=== PATIENT | male | born 1960 | race Two or more races ===

== ENCOUNTER 2022-04-19 06:09 | Inpatient (IN) | payer OTHER ==
[2022-04-19] VITALS (13 sets, daily range): BP systolic 91–158; BP diastolic 55–92
[~2022-04-19] VITALS: Ht 190.5 cm; Wt 107.0 kg
[~2022-04-19 06:09] MED LIST: ACET-1079 PO; GABA300C10 PO; NEBI5TAB2 PO; RIVA10TA PO
[2022-04-19] MEDS ORDERED: ceFAZolin 1GM/50ML 100 ML IV ONE (06:28)
[2022-04-19] MEDS ORDERED: PREGABALIN CAPSULE 75 MG CAP PO ONE (06:30)
[2022-04-19] MEDS ORDERED: ACETAMINOPHEN IV 1000 MG/100ML (10MG/ML) IV ONE (06:30)
[2022-04-19] MEDS ORDERED: PREGABALIN CAPSULE 75 MG CAP ONE (06:51)
[2022-04-19] MEDS ORDERED: CELECOXIB 100 MG CAP ONE (06:51)
[2022-04-19] MEDS ORDERED: ACETAMINOPHEN IV 100 ML IV ONE (06:52)
[2022-04-19] MEDS ORDERED: TRANEXAMIC ACID 20 ML ONE (07:02)
[2022-04-19] MEDS ORDERED: BUPIVACAINE W/ EPINEPH 0.25% INJ 50ML MDV ONE (07:03)
[2022-04-19] MEDS ORDERED: TETRACAINE 1% INJ 2 ML VIAL IJ ONE (07:03)
[2022-04-19] MEDS ORDERED: KETOROLAC TROMETH 30 MG/ML 1ML VIAL ONE (07:04)
[2022-04-19] MEDS ORDERED: VANCOMYCIN HCL 1000 MG VL ONE (07:04)
[2022-04-19] MEDS ORDERED: MORPHINE SULF PF 5 MG/10 ML VIAL ONE (07:10)
[2022-04-19] MEDS ORDERED: CELECOXIB 100 MG CAP PO ONE (07:15)
[2022-04-19] MEDS ORDERED: MIDAZOLAM HCL 2MG/2ML 2ml VIAL (1mg/ml) ONE ×2 (07:18→07:23)
[2022-04-19] MEDS ORDERED: fentaNYL CITRATE 100 MCG/2 ML VL ONE (07:18)
[2022-04-19] MEDS ORDERED: PROPOFOL 10 MG/ML 20 ML IV ONE (07:23)
[2022-04-19] MEDS ORDERED: DexAMETHasone SOD PHOS 10MG/1ML VIAL INJ ONE (07:23)
[2022-04-19] MEDS ORDERED: MIDAZOLAM HCL 2MG/2ML 2ml VIAL (1mg/ml) IV PRN (08:15)
[2022-04-19] MEDS ORDERED: DexAMETHasone SOD PHOS 10MG/1ML VIAL INJ IV PRN (08:15)
[2022-04-19] MEDS ORDERED: ePHEDrine SULFATE 50 MG/ML AMP IV PRN (08:15)
[2022-04-19] MEDS ORDERED: ONDANSETRON HCL 4 MG/2 ML VIAL IV PRN ×2 (08:15→08:30)
[2022-04-19] MEDS ORDERED: METOCLOPRAMIDE HCL 5MG/ml INJ 2ml VIAL IV PRN (08:15)
[2022-04-19] MEDS ORDERED: diphenhdrAMINE HCL 50 MG/1 ML VL IV PRN (08:15)
[2022-04-19] MEDS ORDERED: NALOXONE HCL 0.4 MG/ML VIAL IV PRN (08:15)
[2022-04-19] MEDS ORDERED: NALBUPHINE HCL 10 MG/1ml INJECTION SUBCUT ONE (08:15)
[2022-04-19] MEDS ORDERED: HYDROmorphone HCL 2 MG/ML VL/or syr IV PRN ×2 (08:15→08:30)
[2022-04-19] MEDS ORDERED: LABETALOL HCL 5 MG/ML 4ML SYRINGE IV PRN (08:15)
[2022-04-19] MEDS ORDERED: MORPHINE SULFATE INJ 2 MG/ml SYRG IV PRN (08:30)
[2022-04-19] MEDS ORDERED: ceFAZolin 1GM/50ML 50 ML IV SCH (08:30)
[2022-04-19] MEDS ORDERED: ACETAMINOPHEN 325 MG TAB PO PRN (08:30)
[2022-04-19] MEDS ORDERED: NITROGLYCERIN 0.4 MG SL TAB SL PRN (08:30)
[2022-04-19] MEDS: LACTATED RINGER'S 1,000 ML IV SCH ×2 (09:38→20:39)
[2022-04-19] MEDS: NEBIVOLOL HCL 5 MG PO SCH (10:00)
[2022-04-19] MEDS: DOCUSATE SOD 100 MG CAP PO SCH ×2 (10:00→22:18)
[2022-04-19] MEDS: RIVAROXABAN 15 MG TAB PO SCH (10:00)
[2022-04-19] MEDS: GABAPENTIN 300 MG CAP PO SCH ×2 (10:00→22:18)
[2022-04-19] MEDS ORDERED: ONDANSETRON HCL 4 MG/2 ML VIAL ONE (11:25)
[2022-04-19] MEDS: SODIUM CHLOR 0.9% PF (SALINE LOCK) 10ML VIAL/SYR IV SCH ×2 (13:41→22:18)
[2022-04-19] MEDS: ceFAZolin 1GM/50ML 50 ML IV SCH ×2 (15:08→20:22)
[2022-04-20] VITALS (20 sets, daily range): BP systolic 97–131; BP diastolic 57–75
[2022-04-20] MEDS: OXYCODONE W/ ACETAMINOPHEN 5/325MG TABLET PO PRN ×4 (01:20→20:27)
[2022-04-20] MEDS: ceFAZolin 1GM/50ML 50 ML IV SCH (02:20)
[2022-04-20] MEDS: LACTATED RINGER'S 1,000 ML IV SCH (04:30)
[2022-04-20] MEDS: SODIUM CHLOR 0.9% PF (SALINE LOCK) 10ML VIAL/SYR IV SCH ×3 (06:00→22:56)
[2022-04-20 07:04] LABS: Hemoglobin 10.7 g/dL (13.5-17.5)
[2022-04-20 07:17] LABS: Albumin 3.2 g/dL (3.4-5.0); Calcium 8.1 mg/dL (8.5-10.1); Potassium 3.7 mmol/L (3.5-5.1)
[2022-04-20 07:20] LABS: BUN/Creatinine Ratio 20.5
[2022-04-20 07:23] LABS: Bilirubin, Total 0.7 mg/dL (0.2-1.0); Total Protein 5.7 g/dL (6.4-8.2)
[2022-04-20] MEDS: DOCUSATE SOD 100 MG CAP PO SCH ×2 (09:09→22:56)
[2022-04-20] MEDS: GABAPENTIN 300 MG CAP PO SCH ×2 (09:09→22:56)
[2022-04-20] MEDS: RIVAROXABAN 15 MG TAB PO SCH (09:10)
[2022-04-20] MEDS: NEBIVOLOL HCL 5 MG PO SCH (09:12)
[2022-04-20] MEDS: ALBUTEROL SULF 2.5 MG/0.5ML(0.5%) NEB SOLN NEB SCH ×2 (18:52→22:03)
[2022-04-20] MEDS: IPRATROPIUM BROM 0.5 MG/2.5ML INH SOL NEB SCH ×2 (18:52→22:03)
[2022-04-21] MEDS: ALBUTEROL SULF 2.5 MG/0.5ML(0.5%) NEB SOLN NEB SCH ×4 (02:03→12:42)
[2022-04-21] MEDS: IPRATROPIUM BROM 0.5 MG/2.5ML INH SOL NEB SCH ×4 (02:03→12:42)
[2022-04-21 05:00] VITALS: BP 116/68
[2022-04-21] MEDS: SODIUM CHLOR 0.9% PF (SALINE LOCK) 10ML VIAL/SYR IV SCH (06:17)
[2022-04-21 06:20] LABS: Hematocrit 29.9 % (41.0-53.0); Hemoglobin 10.4 g/dL (13.5-17.5)
[2022-04-21 08:00] VITALS: BP 131/75
[2022-04-21] MEDS: OXYCODONE W/ ACETAMINOPHEN 5/325MG TABLET PO PRN (08:01)
[2022-04-21 09:00] VITALS: BP 131/75
[2022-04-21] MEDS: NEBIVOLOL HCL 5 MG PO SCH (09:05)
[2022-04-21] MEDS: RIVAROXABAN 15 MG TAB PO SCH (09:07)
[2022-04-21] MEDS: GABAPENTIN 300 MG CAP PO SCH (09:07)
[2022-04-21] MEDS: DOCUSATE SOD 100 MG CAP PO SCH (09:07)
[2022-04-21] MEDS ORDERED: SENN-83 PO (12:44)
[2022-04-21] MEDS ORDERED: NALO4SPR2 (12:44)
[2022-04-21] MEDS ORDERED: PERCOT PO (12:44)
[2022-04-21 13:00] VITALS: BP 125/82
== END 2022-04-21 17:00 | disposition home health service (06) | DRG 470 ==
LOC: SUR 06:09 → TELE 08:29 → TELE-EAST 13:17
PROVIDERS: ADMIT Orthopaedic Surgery Adult Reconstructive Orthopaedic Surgery; ATTEND Hospitalist
PROC: 8E0YXBZ Computer Assisted Procedure of Lower Extremity (ICD-10-PCS; 2022-04-19)
PROC: 0SRD0J9 Replacement of Left Knee Joint with Synthetic Substitute, Cemented, Open Approach (ICD-10-PCS; principal; 2022-04-19 07:38)
DX: M17.12 Unilateral primary osteoarthritis, left knee (principal); I48.0 Paroxysmal atrial fibrillation; I11.9 Hypertensive heart disease without heart failure; R09.02 Hypoxemia; Z20.822 Contact with and (suspected) exposure to COVID-19; Z88.6 Allergy status to analgesic agent
CPT/HCPCS: 36415; 71045; 73562; 80053; 85014; 85018; 86850; 86900; 86901; 94640; 97110; 97116; 97163; 97530; G0378; J0131; J0690; J1100; J1885; J2250; J2405; J2704